=== PATIENT | female | born 1960 | race African-American/Black ===

== ENCOUNTER 2023-07-04 05:23 | Observation (INO) | payer BC ==
--- NOTE | 2023-06-29 10:25 | RAD REPORT ---
EXAM DESCRIPTION: RAD - Chest Pa And Lat (2 Views) - 06/29/2023 10:19 am CLINICAL HISTORY: PRE OP Chest pain. COMPARISON: No comparisons TECHNIQUE: PA and lateral views of the chest were obtained. FINDINGS: The lungs are hyperexpanded suggesting COPD. The heart is upper limit of normal in size. N o fracture or aggressive bony process. IMPRESSION: COPD without acute process identified. The USPSTF recommends annual screening for lung cancer with low-dose CT (LDCT) in adults aged 50 to 80 years who have a 20 pack-year smoking history and currently smoke or have quit within the past 15 years.
[2023-06-29 11:02] LABS: Urine Bilirubin NEGATIVE (Negative); Urine Blood Negative (Negative); Urine Clarity Clear (Clear); Urine Color Colorless (Yellow); Urine Glucose NEGATIVE (Negative); Urine Protein NEGATIVE (Negative); Urine Urobilinogen Normal (Normal)
[2023-06-29 11:03] LABS: Absolute Lymphocytes (CBC) 1.8 K/uL (0.7-4.9); Hematocrit 39.1 % (36.0-45.0); Lymphocytes % 21.2 % (15.3-44.8); MPV 8.8 fL (7.6-11.3); Platelets 254 thou/uL (152-406); RBC Red Blood Cell Count 4.39 M/uL (3.86-4.86)
[2023-06-29 11:09] LABS: Protime INR 1.03
[2023-06-29 11:30] LABS: Albumin 3.3 g/dL (3.4-5.0); Bilirubin Total 0.4 mg/dL (0.2-1.0); Protein, Total 7.6 g/dL (6.4-8.2)
[2023-07-04] MEDS ORDERED: CEFAZOLIN SODIUM 2 GM/VIAL ONE (05:52)
[2023-07-04] MEDS ORDERED: ACETAMINOPHEN 500 MG TAB ONE (05:53)
[2023-07-04] MEDS ORDERED: Ringers Lactate 1,000 ML IV ONE ×2 (05:53→08:59)
[2023-07-04] MEDS ORDERED: FENTANYL CITR 100 MCG/2 ML ONE (06:14)
[2023-07-04] MEDS ORDERED: LIDOCAINE 2% MPF 5 ML VIAL ONE ×2 (06:14→07:35)
[2023-07-04] MEDS ORDERED: HYDROMORPHONE HCL 1 MG/ML INJ ONE (06:15)
[2023-07-04] MEDS ORDERED: dexAMETHasone 4 MG/ML VIAL ONE (06:15)
[2023-07-04] MEDS ORDERED: MIDAZOLAM HCL 2 MG/2 ML INJ ONE (06:15)
[2023-07-04] MEDS ORDERED: EPINEPHRINE/PF 1 MG/ML AMP ONE (06:15)
[2023-07-04] MEDS ORDERED: BUPIVACAINE 0.25% PF 30 ML VIAL ONE (06:16)
[2023-07-04] MEDS ORDERED: dexAMETHasone 10 MG/ML VIAL ONE (06:29)
[2023-07-04] MEDS ORDERED: TRANEXAMIC ACID 1,000 MG/10 ML VIAL IV ONE (06:37)
[2023-07-04] MEDS ORDERED: propofoL 200 MG/20 ML VIAL IV ONE (07:23)
[2023-07-04] MEDS ORDERED: ONDANSETRON 4 MG/2 ML VIAL ONE (07:25)
[2023-07-04] MEDS ORDERED: KETOROLAC 30 MG/ML INJ ONE (07:26)
[2023-07-04] MEDS ORDERED: MAGNESIUM SULF IV ONE (07:30)
[2023-07-04] MEDS ORDERED: KETAMINE HCL IN 0.9 % NACL 50 MG/5 ML SYRINGE IV ONE (07:35)
[2023-07-04] MEDS ORDERED: DEXMEDETOMIDINE HCL 200 MCG/2 ML VIAL ONE (07:35)
[2023-07-04] MEDS ORDERED: NA CHLORIDE 0.9% 250 ML ONE (07:36)
[2023-07-04] MEDS ORDERED: ONDANSETRON 4 MG/2 ML VIAL IV PRN (09:39)
[2023-07-04] MEDS ORDERED: DOCUSATE NA 100 MG CAP PO PRN (09:39)
--- NOTE | 2023-07-04 09:47 | P.BOP ---
Preoperative diagnosis: left knee arthritis Postoperative diagnosis: same Primary procedure: left ttoal knee arthoplasty Estimated blood loss: 100 ccs Anesthesia: General Complications: None Transferred to: Recovery Room Condition: Good
--- OUTSIDE RECORDS SUMMARY | 2023-07-04 10:23 | XMS REPORT | Continuity of Care Document ---
:1960 Author Organization [facility] t Address [address] [facility] [address] [place] [address] Care Team Providers Name Role Phone Radhika Bond Primary Care Physician Justyn Herzog I Attending Clinician Unavailable Roverto VILLALOBOS, Salvador Paz Attending Clinician [phone] Abbe Cornell MA Attending Clinician Unavailable CAROLYNE THOMPSON Attending Clinician Unavailable Checo Interiano APRN Attending Clinician DEBBIE DARBY Attending Clinician Unavailable DEBBIE DARBY Attending Clinician [phone] JEANNE CHOI Attending Clinician Unavailable JEANNE CHOI Attending Clinician [phone] PARK THOMPSON Attending Clinician Unavailable Payers Payer Name Policy Type Policy Number Effective Date Expiration Date Andrea de oliveira [facility] [id number] 2018 [facility] 00:00:00 Problems Condition Condition Condition Status Onset Resolution Last Treating Co mments Source Name Details Category Date Date Treatment Clinician Date Chronic Chronic Disease Active [facility] pain of pain of 08-16 Health both knees both knees 00:00: 00 Primary Primary Disease Active [facility] osteoarthr osteoarthr 08-16 He alth itis of itis of 00:00: both knees both knees 00 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 3- st disease disease 00:00: Hospita that is that is 00 l not asthma not asthma Allergic Allergic Disease Active [facility] sinusitis sinusitis 02-12 00:00: Hospita 00 l Allergies, Adverse Reactions, Alerts Allergy Allergy Status Severity Reaction(s) Onset Inactive Treating Comm ents Source Name Type Date Date Clinician Codeine Propensi Active Unknown Method i ty to Reaction 02-12 st adverse 00:00: Hospita reaction 00 l s to drug Sulfa Propensi Active Unknown Methodi (Sulfona ty to Reaction 02-12 st mide adverse 00:00: Hospita Antibiot reaction 00 l ics) s to drug Codeine Allergy Active Unknown [facility] to 02-12 Health substanc 00:00: e 00 Family History Family Member Diagnosis Comments Start Date Stop Date Source Natural father Hypertension [facility] Natural father Diabetes [facility] Maternal grandfather Stroke Meth [facility] Maternal grandfather Throat cancer [facility] Natural mother Hypertension [facility] Social History Social Habit Start Date Stop Date Quantity Comments Source Health-related 2020-03-10 [facility] 00:00:00 Gender identity [facility] Sexual orientation [facility] Alcohol intake 2023-06-02 2023-06-02 Lifetime [facility] 00:00:00 00:00:00 non-drinker (finding) History of Social 2023-06-02 2023-06-02 [facility] function 00:00:00 00:00:00 Exposure to 2022-08-20 2022-08-30 Not sure [facility] SARS-CoV-2 (event) 00:00:00 16:20:00 Tobacco use and 2020-02-13 2020-02-13 Smokeless [facility] exposure 00:00:00 00:00:00 tobacco non-user Sex Ass[birth year] [facility] 00:00:00 00:00:00 Smoking Status Start Date Stop Date Source Unknown [facility] Never [facility] Medications Ordered Filled Start Stop Current Ordering Indication Dosage Frequency Signature Comments Components Source Medication Medication Date Date Medication? Clinician (SIG) Name Name mirabegron Yes 50mg QD Take 1 Metho di (MYRBETIQ) -09 tablet (50 st 50 mg 00:00: mg total) Hospita tablet 00 by mouth l extended daily. release 24 hr Sodium 2021-11- No [id number] 20mg UT Hyaluronate 0-08-30 Health solution 21:50: 21:50 prefilled 21 :00 syringe 20 mg Sodium 2021-11 No [id number] 20mg UT Hyaluronate 0-08-30 Health solution 21:50: 21:50 prefilled 21 :00 syringe 20 mg lidocaine 2021-11- No [id number] 1mL U T (Xylocaine) 0-08-30 Health 1 % 21:50: 21:50 injection 1 21 :00 mL lidocaine 2021-11 No [id number] 1mL U T (Xylocaine) 008-30 Health 1 % 21:50: 21:50 injection 1 21 :00 mL lidocaine 2021-11 No [id number] 1mL 1 mL, UT (Xylocaine) 0-08-30 Injection, H ealth 1 % 21:50: 21:50 Once PRN injection 1 21 :00 Procedure, mL Starting on Mon08/30/22 at 1650, For 1 dose lidocaine 2021-11 No [id number] 1mL 1 mL, UT (Xylocaine) 0-08-30 Injection, H ealth 1 % 21:50: 21:50 Once PRN injection 1 21 :00 Procedure, mL Starting on Mon08/30/22 at 1650, For 1 dose Sodium 2021-11 No [id number] 20mg 20 mg, UT Hyaluronate 008-30 Intra-jake H ealth solution 21:50: 21:50 cular, prefilled 21 :00 Once PRN syringe 20 Procedure, mg Starting on Mon08/30/22 at 1650, For 1 dose Sodium 2021-11 No [id number] 20mg 20 mg, UT Hyaluronate 0-09 29- Intra-jake H ealth solution 21:50: 21:50 cular, prefilled 21 :00 Once PRN syringe 20 Procedure, mg Starting on Mon08/30/22 at 1650, For 1 dose Sodium 2021-11- No [id number] 20mg UT Hyaluronate 0-08-23 Health solution 22:32: 22:32 prefilled 12 :00 syringe 20 mg Sodium 2021-11 No [id number] 20mg UT Hyaluronate 0-04 10-04 Health solution 22:32: 22:32 prefilled 12 :00 syringe 20 mg bupivacaine 2021-11 No [id number] 1mL UT (Marcaine) 0-04 10- Health 0.5 % 22:32: 22:32 injection 1 12 :00 mL bupivacaine 2021-11 No [id number] 1mL UT (Marcaine) 0-04 10 Health 0.5 % 22:32: 22:32 injection 1 12 :00 mL bupivacaine 2021-11 No [id number] 1mL 1 mL, UT (Marcaine) 0-04 10-04 Injection, He alth 0.5 % 22:32: 22:32 Once PRN injection 1 12 :00 Procedure, mL Starting on 08/23/22 at 1732, For 1 dose bupivacaine 2021-11 No [id number] 1mL 1 mL, UT (Marcaine) 0-04 08-23 Injection, He alth 0.5 % 22:32: 22:32 Once PRN injection 1 12 :00 Procedure, mL Starting on Mon08/23/22 at 1732, For 1 dose Sodium 2021-11 No [id number] 20mg 20 mg, UT Hyaluronate 0-04 10-04 Intra-jake H ealth solution 22:32: 22:32 cular, prefilled 12 :00 Once PRN syringe 20 Procedure, mg Starting on Mon08/23/22 at 1732, For 1 dose Sodium 2021-11 No [id number] 20mg 20 mg, UT Hyaluronate 0-04 10-04 Intra-jake H ealth solution 22:32: 22:32 cular, prefilled 12 :00 Once PRN syringe 20 Procedure, mg Starting on Mon08/23/22 at 1732, For 1 dose meloxicam No [id number] 15mg Take 1 UT (Mobic) 15 08-17-29 tablet (15 He alth MG tablet 00:00: 04:59 mg total) 00 :00 by mouth 1 (one) time each day if needed for mild pain. meloxicam No [id number] 15mg Take 1 UT (Mobic) 15 08-17 10-29 tablet (15 He alth MG tablet 00:00: 04:59 mg total) 00 :00 by mouth 1 (one) time each day if needed for mild pain. meloxicam No [id number] 15mg Take 1 UT (Mobic) 15 08-17 10-29 tablet (15 He alth MG tablet 00:00: 04:59 mg total) 00 :00 by mouth 1 (one) time each day if needed for mild pain. sodium 2021- No 8181 20mg UT hyaluronate 08-16 09 Health (viscosup) 15:00: 15:07 (Hyalgan) 00 :27 injection 20 mg lidocaine 2021- No [id number] 1mL UT (Xylocaine) 03-31 Health 1 % 21:04: 21:04 injection 1 22 :00 mL triamcinolo 2021- No [id number] 80mg UT ne 03-31 Health acetonide 21:04: 21:04 (Kenalog-40 22 :00 ) injection 80 mg lidocaine 2021- No [id number] 1mL UT (Xylocaine) 03-31 410 Health 1 % 21:04: 21:04 injection 1 22 :00 mL triamcinolo 2021- No [id number] 80mg UT ne 03-31 410 Health acetonide 21:04: 21:04 (Kenalog-40 22 :00 ) injection 80 mg triamcinolo 2021- No [id number] 80mg 80 mg, UT ne 03-31 410 Intra-jake Health acetonide 21:04: 21:04 cular, (Kenalog-40 22 :00 Once PRN ) injection Procedure, 80 mg Starting on Mon03/31/22 at 1604, For 1 dose lidocaine 2021- No [id number] 1mL 1 mL, UT (Xylocaine) 03-31 410 Injection, H ealth 1 % 21:04: 21:04 Once PRN injection 1 22 :00 Procedure, mL Starting on Mon03/31/22 at 1604, For 1 dose triamcinolo 2021- No [id number] 80mg 80 mg, UT ne 03-31 410 Intra-jake Health acetonide 21:04: 21:04 cular, (Kenalog-40 22 :00 Once PRN ) injection Procedure, 80 mg Starting on Shandra 03/31/22 at 1604, For 1 dose lidocaine 2021- No [id number] 1mL 1 mL, UT (Xylocaine) 03-31 Injection, H ealth 1 % 21:04: 21:04 Once PRN injection 1 22 :00 Procedure, mL Starting on Shandra 03/31/22 at 1604, For 1 dose Procedures Procedure Date / Time Performing Clinician Source Performed POC URINALYSIS DIPSTICK 2023-05-09 21:36:00 Salvador Woods [facility] [id number] 2023-05-09 21:35:45 Salvador Woods [facility] ARTHROCENTESIS ASPIR&/INJ 2022-08-30 [facility] ARTHROCENTESIS ASPIR&/INJ 2022-08-23 22:32:12 [facility] JT/BURSA W/O BILATERAL ARTHROCENTESIS ASPIR&/INJ 2022-03-31 21:04:22 [facility] JT/BURSA W/O BILATERAL Infectious agent 2020-10-26 00:00:00 [facility] detection by nucleic acid (DNA or Infectious agent 2020-10-19 00:00:00 [facility] by nucleic acid (DNA or Infectious agent 2020-10-13 00:00:00 [facility] detection by nucleic acid (DNA or Infectious agent 2020-03-04 00:00:00 [facility] detection by nucleic acid Plan of Care Planned Activity Planned Date Details Comments Source Future Scheduled 2023-06-29 Screening for [facility] Test 05:56:13 malignant neoplasm of colon (procedure) [code = 874231007] Future Scheduled 2023-06-29 Screening for [facility] Test 05:56:13 malignant neoplasm of colon (procedure) [code = 644514220] Future Scheduled 2023-06-29 Screening for [facility] Test 05:56:13 malignant neoplasm of colon (procedure) [code = 801516403] Future Scheduled 2023-06-29 [facility] Test 05:56:13 (#1) [code = COVID-19 VACCINE (#1)] Future Scheduled 2023-06-29 Hepatitis C [facility] Test 05:56:13 screening (procedure) [code = 201348011] Future Scheduled 2023-06-29 Screening for [facility] Test 05:56:13 malignant neoplasm of cervix (procedure) [code = 163031507] Future Scheduled 2023-06-29 BREAST CANCER [facility] Test 05:56:13 SCREENING [code = BREAST CANCER SCREENING] Future Scheduled 2023-06-29 SH[facility]LES [facility]ACCINES [facility] Test 05:56:13 (1 of 2) [code = SHINGLES VACCINES (1 of 2)] Future Scheduled 2023-06-29 INFLUENZA VACCINE [facility] Test 05:56:13 [code = INFLUENZA VACCINE] Future Scheduled 2023-06-29 Screening for [facility] Test 05:56:13 malignant neoplasm of colon (procedure) [code = 572883697] Future Scheduled 2023-06-29 Screening for [facility] Test 05:56:13 malignant neoplasm of colon (procedure) [code = 228955725] Encounters Start End Encounter Admission Attending Care Care Encounter Source Date/Time Date/Time Type Type Clinicians Facility Department ID 2023-02-03 Outpatient [facility] [id number] [place] 08:44:54 [id number] Health 2023-06-28 2023-06-28 Telephone Mino 1.2.840.1 [id number] [facility] 00:00:00 00:00:00 Justyn [address]errero [address] 3.430.2.7 Hospit a .3.306365 l .8 2023-06-02 2023-06-02 Telephone Roverto 1.2.840.1 [id number] [facility] 11:15:00 12:20:08 Consult Salvador [address]25.1.[address] [facility] 3.430.2.7 Hosp blossom .3.155648 l .8 2023-06-02 2023-06-02 Telephone Kraig, 1.2.840.1 [id number] [facility] 00:00:00 00:00:[address] 3.430.2.7 Hospit a .3.372320 l .8 2023-06-02 2023-06-02 Outpatient ROVERTO [facility] [id number] [place] 00:00:00 00:00:00 [place] [address] 2023-05-31 2023-05-31 Telephone Kraig, 1.2.840.1 [id number] [facility] 00:00:00 00:00:[address] 3.430.2.7 Hospit a .3.153977 l .8 2023-05-09 2023-05-09 Office Roverto, 1.2.840.1 [id number] [facility] 15:00:00 16:09:09 Visit Salvador [address]8071.1.[address] [facility] 3.430.2.7 Hosp blossom .3.017965 l .8 2023-05-09 2023-05-09 Outpatient ROVERTO [facility] [id number] [place] 00:00:00 00:00:00 SALV[place] [address] 2022-10-05 2022-10-05 Outpatient DONNA, [facility] [id number] [place] 16:30:00 17:06:43 [facility] 2022-08-30 2022-08-30 Procedure Laisha, [facility] 1.2.840.114 [id number] [place] 16:30:00 16:34:50 Visit Checo SUGAR 350.1.13.58 He alth [place]AND 9.2.7.2.686 [id number] 1 2022-08-23 2022-08-23 Procedure Laisha, [facility] 1.2.840.114 [id number] [place] 16:30:00 17:09:59 Visit Checo SUGAR 350.1.13.58 He alth LAND 9.2.7.2.686 [id number] 1 2022-08-16 2022-08-16 Office MAICO Thompson ORTHO [id number] [id number] [place] 09:15:00 10:07:51 Visit Carolyne SUGAR 350.1.13.58 [facility] alth [place] 9.2.7.2.686 [id number] 1 2022-03-31 2022-03-31 Office MAICO Thompson ORTHO 1.2.347.738 [id number] [place] 14:30:00 15:34:45 Visit Carolyne SUGAR 350.1.13.58 He alth LAND 9.2.7.2.686 [id number] 1 2020-10-29 2020-10-29 Outpatient DARBY, [facility] [id number] [facility] 15:00:00 15:00:00 DEBBIE [facility] 2020-10-29 2020-10-29 Outpatient DARBY, [facility] [id number] [facility] 15:00:00 15:00:00 DEBBIE Mendez [id number] de3 [id number] 2020-10-29 2020-10-29 Outpatient DARBY, [facility] [id number] [facility] 00:00:00 00:00:00 DEBBIE [facility] 2020-10-26 2020-10-26 Outpatient DARBY, [facility] [id number] [facility] 16:15:00 16:15:00 DEBBIE [facility] 2020-10-26 2020-10-26 Outpatient DARBY, [facility] [id number] [facility] 16:15:00 16:15:00 DEBBIE Mendez [id number] de3 [id number] 2020-10-19 2020-10-19 Outpatient DARBY, [facility] [id number] [facility] 13:15:00 13:15:00 DEBBIE [facility] 2020-10-19 2020-10-19 Outpatient DARBY, [facility] [id number] [facility] 13:15:00 13:15:00 DEBBIE Mendez [id number] [facility] [id number] [id number] 2020-10-13 2020-10-13 Outpatient WILNER, [facility] [id number] Access 14:00:00 14:00:00 DEBBIE [facility] 2020-10-13 2020-10-13 Outpatient WILNER, [facility] [id number] Access 14:00:00 14:00:00 DEBBIE Mendez [id number] [facility] [id number] [id number] 2020-10-13 2020-10-13 Outpatient WILNER, [facility] [id number] Access 00:00:00 00:00:00 DEBBIE [facility] 2020-10-13 2020-10-13 Outpatient WILNER [facility] [id number] Access 00:00:00 00:00:00 DEBBIE Mendez [id number] [facility] [id number] de3 [id number] 2020-03-10 2020-03-10 Outpatient JIMBO, [facility] [id number] Access 11:03:00 11:03:00 JEANNE [facility] 2020-03-10 2020-03-10 Outpatient JIMBO, [facility] [id number] Access 11:03:00 11:03:00 JEANNE [id number] [facility] [id number] 2020-03-04 2020-03-04 Outpatient [facility] [id number] Access 16:00:00 16:00:00 [id number] [facility] [id number] 2020-03-04 Outpatient [facility] [id number] [address] [place] 00:00:00 00:00:[address] 2020-03-04 2020-03-04 Outpatient WILNER, [facility] [id number] Access 00:00:00 00:00:00 DEBBIE [facility] 2020-03-04 2020-03-04 Outpatient THOMPSON, [facility] [id number] [address] [place] 00:00:00 00:00:00 [place] [address] 2020-03-04 2020-03-04 Outpatient WILNER, [facility] [id number] [facility] 00:00:00 00:00:00 DEBBIE Mendez [id number] [facility] [id number] de3 [id number] 2020-03-04 2020-03-04 Outpatient THOMPSON, [facility] [id number] [address] [place] 00:00:00 00:00:00 PARK [address] 2020-02-13 2020-02-13 Outpatient THOMPSON, [facility] [id number] [address] [place] 00:00:00 00:00:00 P[place] [address] Results Test Description Test Time Test Comments Results Result Comments Source POC urinalysis dipstick 2023-05-09 21:36:00 Test Item Value Reference Range Interpretation Comme nts Color urine, POC (test code = Yellow 1434588) Clarity urine, POC (test code = Clear 1847947) Glucose urine, POC (test code = Negative Negative 8564983) Bilirubin urine, POC (test code = Negative Negative 8269810) Ketones urine, POC (test code = Trace Negative A 2514-8) Specific gravity urine, POC (test 1.025 1.005-1.030 code = 5811-5) Blood urine, POC (test code = Negative Negative 3330715) pH urine, POC (test code = 5.5 See_Comment [Automated message] The 5803-2) system which ge nerated this result transmit zoya reference range: 5.0, 5.5 , 6.0, 6.5, 7.0, 7.5, 8.0, 8.5. The reference range was not used to interpret th is result as normal/abnormal . Protein urine, POC (test code = Trace Negative A 35090-4) Urobilinogen urine, POC (test <2.0 See_Comment [Automated message] The code = 82782-7) system which generated this result transmit zoya reference range: <=2.0. T he reference range was not u sed to interpret this result as normal/abnormal . Nitrite urine, POC (test code = Negative Negative 5802-4) Leukocyte esterase urine, POC Small Negative A (test code = 4477792) Lab Interpretation (test code = Abnormal 84770-0) [facility] BLADDER SCAN/[id number] 21:35:45 Test Item Value Reference Range Interpretation Comments Volume (test code = 0733117) 3ml [facility] Description: SARS-CoV-2 (COVID-19) RNA [Presence] in Unspecified specimen by MAGALIE with probe [id number] 08:42:00 Test Item Value Reference Range Interpretation Comments SARS-CoV-2 Not Detected Not Detected Testing was per formed using the , MAGALIE Aptima SARS-CoV -2 assay.This (test code nucleic acid am plification test = 70422-9) was developed a nd its performancechar acteristics determined by [employer]. [facility] acidamplificati on tests include PCR and TMA. Th is test has not been FDAcleared or approved. This test has b een authorized by FDA under anEme rgency Use Authorization ( EUA). This test is only authori zed forthe duration of manuela e the declaration that circumstan joe existjustifying the authorization o f the emergency use of in vitro diagnostic tests for detection o f SARS-CoV-2 virus and/or di agnosisof COVID-19 infect ion under section 564(b)(1) of th e Act, 21 U.S.C.360bbb-3( b) (1), unless the authorizati on is terminated or revokedsoone r.When diagnostic testing is nega tive, the possibility of a falsenegative result should b e considered in the context of a patient'srecent exposures and t he presence of clinical signs and symptomsconsist ent with COVID-19. An in dividual without symptoms of COV ID-19and who is not shedding SA RS-CoV-2 virus would expect to have anegative (not detected) result in this assay.
<br/ >Performed by:
[facility] CORREA)

[facility] Description: SARS-CoV-2 (COVID-19) RNA [Presence] in Unspecified specimen by MAGALIE with probe [id number] 08:42:00 Test Item Value Reference Range Interpretation Comments SARS-CoV-2 Not Detected Not Detected Testing was per formed using the , MAGALIE Aptima SARS-CoV -2 assay.This (test code nucleic acid am plification test = 00782-2) was developed a nd its performancechar acteristics determined by [employer]. N ucleic acidamplificati on tests include PCR and TMA. Th is test has not been FDAcleared or approved. This test has b een authorized by FDA under anEme rgency Use Authorization ( EUA). This test is only authori zed forthe duration of manuela e the declaration that circumstan joe existjustifying the authorization o f the emergency use of in vitro diagnostic tests for detection o f SARS-CoV-2 virus and/or di agnosisof COVID-19 infect ion under section 564(b)(1) of th e Act, 21 U.S.C.360bbb-3( b) (1), unless the authorizati on is terminated or revokedsoone r.When diagnostic testing is nega tive, the possibility of a falsenegative result should b e considered in the context of a patient'srecent exposures and t he presence of clinical signs and symptomsconsist ent with COVID-19. An in dividual without symptoms of COV ID-19and who is not shedding SA RS-CoV-2 virus would expect to have anegative (not detected) result in this assay.
<br/ >Performed by:
[facility] (NITHIN)

[facility] Description: SARS-CoV-2 (COVID-19) RNA [Presence] in Unspecified specimen by MAGALIE with probe [id number] 07:45:00 Test Item Value Reference Range Interpretation Comments SARS-CoV-2 Not Detected Not Detected Testing was per formed using the , MAGALIE Aptima SARS-CoV -2 assay.This (test code nucleic acid am plification test = 73202-0) was developed a nd its performancechar acteristics determined by [employer]. N ucleic acidamplificati on tests include PCR and TMA. is test has not been FDAcleared or approved. This test has b een authorized by FDA under anEme rgency Use Authorization ( EUA). This test is only authori zed duration of manuela e the declaration that circumstan joe existjustifying the authorization o f the emergency use of in vitro diagnostic tests for detection o f SARS-CoV-2 virus and/or di agnosisof COVID-19 infect ion under section 564(b)(1) of e Act, U.S.C.360bbb-3( b) (1), unless the authorizati on is terminated or revokedsoone r.When diagnostic testing is nega tive, the possibility of a falsenegative result should b e considered in the context of a patient'srecent exposures and t he presence of clinical signs and symptomsconsist ent with COVID-19. An in dividual without symptoms of COV ID-19and who is not shedding SA RS-CoV-2 virus would expect to have anegative (not detected) result in this assay.
<br/ >Performed by:
[facility] ()

[facility] Description: SARS-CoV-2 (COVID-19) RNA [Presence] in Unspecified specimen by MAGALIE with probe [id number] 07:45:00 Test Item Value Reference Range Interpretation Comments SARS-CoV-2 Not Detected Not Detected Testing was per formed using the , MAGALIE Aptima SARS-CoV -2 assay.This (test code nucleic acid am plification test = 98225-3) was developed a nd its performancechar acteristics determined by [employer]. [facility] acidamplificati on tests include PCR and TMA. is test has not been FDAcleared or approved. This test has b een authorized by FDA under anEme rgency Use Authorization ( EUA). This test is only authori zed duration of manuela e the declaration that circumstan joe existjustifying the authorization o f the emergency use of in vitro diagnostic tests for detection o f SARS-CoV-2 virus and/or di agnosisof COVID-19 infect ion under section 564(b)(1) of e Act, 21 U.S.C.360bbb-3( b) (1), unless the authorizati on is terminated or revokedsoone r.When diagnostic testing is nega tive, the possibility of a falsenegative result should b e considered in the context of a patient'srecent exposures and t he presence of clinical signs and symptomsconsist ent with COVID-19. An in dividual without symptoms of COV ID-19and who is not shedding SA RS-CoV-2 virus would expect to have anegative (not detected) result in this assay.
<br/ >Performed by:
[facility] (NITHIN)

[facility] Description: SARS-CoV-2 (COVID-19) RNA [Presence] in Unspecified specimen by MAGALIE with probe [id number] 07:45:00 Test Item Value Reference Range Interpretation Comments SARS-CoV-2 Not Detected Not Detected Testing was per formed using the , MAGALIE Aptima SARS-CoV -2 assay.This (test code nucleic acid am plification test = 31381-9) was developed a nd its performancechar acteristics determined by [employer]. [facility] acidamplificati on tests include PCR and TMA. is test has not been FDAcleared or approved. This test has b een authorized by FDA under anEme rgency Use Authorization ( EUA). This test is only authori zed forthe duration of manuela e the declaration that circumstan joe existjustifying the authorization o f the emergency use of in vitro diagnostic tests for detection o f SARS-CoV-2 virus and/or di agnosisof COVID-19 infect ion under section 564(b)(1) of e Act, 21 U.S.C.360bbb-3( b) (1), unless the authorizati on is terminated or revokedsoone r.When diagnostic testing is nega tive, the possibility of a falsenegative result should b e considered in the context of a patient'srecent exposures and t he presence of clinical signs and symptomsconsist ent with COVID-19. An in dividual without symptoms of COV ID-19and who is not shedding SA RS-CoV-2 virus would expect to have anegative (not detected) result in this assay.
<br/ >Performed by:
Miracle Kellogg (NITHIN)

[facility] Description: SARS-CoV-2 (COVID-19) RNA [Presence] in Unspecified specimen by MAGALIE with probe [id number] 07:45:00 Test Item Value Reference Range Interpretation Comments SARS-CoV-2 Not Detected Not Detected Testing was per formed using the , MAGALIE Aptima SARS-CoV -2 assay.This (test code nucleic acid am plification test = 77079-2) was developed a nd its performancechar acteristics determined by [employer]. [facility] acidamplificati on tests include PCR and TMA. Th is test has not been FDAcleared or approved. This test has b een authorized by FDA under anEme rgency Use Authorization ( EUA). This test is only authori zed forthe duration of manuela e the declaration that circumstan joe existjustifying the authorization o f the emergency use of in vitro diagnostic tests for detection o f SARS-CoV-2 virus and/or di agnosisof COVID-19 infect ion under section 564(b)(1) of th e Act, 21 U.S.C.360bbb-3( b) (1), unless the authorizati on is terminated or revokedsoone r.When diagnostic testing is nega tive, the possibility of a falsenegative result should b e considered in the context of a patient'srecent exposures and t he presence of clinical signs and symptomsconsist ent with COVID-19. An in dividual without symptoms of COV ID-19and who is not shedding SA RS-CoV-2 virus would expect to have anegative (not detected) result in this assay.
<br/ >Performed by:
Miracle Kellogg (NITHIN)

[facility] Description: SARS-CoV-2 (COVID-19) RNA [Presence] in Unspecified specimen by MAGALIE with probe [id number] 05:31:00 Test Item Value Reference Range Interpretation Comments SARS-CoV-2 Not Detected Not Detected Testing was per formed using the , MAGALIE Aptima SARS-CoV -2 assay.This (test code nucleic acid am plification test = 72105-8) was developed a nd its performancechar acteristics determined by [employer]. N ucleic acidamplificati on tests include PCR and TMA. Th is test has not been FDAcleared or approved. This test has b een authorized by FDA under anEme rgency Use Authorization ( EUA). This test is only authori zed forth duration of manuela e the declaration that circumstan joe existjustifying the authorization o f the emergency use of in vitro diagnostic tests for detection o f SARS-CoV-2 virus and/or di agnosisof COVID-19 infect ion under section 564(b)(1) of e Act, 21 U.S.C.360bbb-3( b) (1), unless the authorizati on is terminated or revokedsoone r.When diagnostic testing is nega tive, the possibility of a falsenegative result should b e considered in the context of a patient'srecent exposures and t he presence of clinical signs and symptomsconsist ent with COVID-19. An in dividual without symptoms of COV ID-19and who is not shedding SA RS-CoV-2 virus would expect to have anegative (not detected) result in this assay.
<br/ >Performed by:
Miracle Kellogg ()

[facility] Description: SARS-CoV-2 (COVID-19) RNA [Presence] in Unspecified specimen by MAGALIE with probe [id number] 05:31:00 Test Item Value Reference Range Interpretation Comments SARS-CoV-2 Not Detected Not Detected Testing was per formed using the , MAGALIE Aptima SARS-CoV -2 assay.This (test code nucleic acid am plification test = 87155-4) was developed a nd its performancechar acteristics determined by [employer]. N ucleic acidamplificati on tests include PCR and TMA. Th is test has not been FDAcleared or approved. This test has b een authorized by FDA under anEme rgency Use Authorization ( EUA). This test is only authori zed forthe duration of manuela e the declaration that circumstan joe existjustifying the authorization o f the emergency use of in vitro diagnostic tests for detection o f SARS-CoV-2 virus and/or di agnosisof COVID-19 infect ion under section 564(b)(1) of e Act, 21 U.S.C.360bbb-3( b) (1), unless the authorizati on is terminated or revokedsoone r.When diagnostic testing is nega tive, the possibility of a falsenegative result should b e considered in the context of a patient'srecent exposures and t he presence of clinical signs and symptomsconsist ent with COVID-19. An in dividual without symptoms of COV ID-19and who is not shedding SA RS-CoV-2 virus would expect to have anegative (not detected) result in this assay.
<br/ >Performed by:
[facility] (NITHIN)

[facility] Description: SARS-CoV-2 (COVID-19) RNA [Presence] in Unspecified specimen by MAGALIE with probe [id number] 05:31:00 Test Item Value Reference Range Interpretation Comments SARS-CoV-2 Not Detected Not Detected Testing was per formed using the , MAGALIE Aptima SARS-CoV -2 assay.This (test code nucleic acid am plification test = 10947-4) was developed a nd its performancechar acteristics determined by [employer]. [facility] acidamplificati on tests include PCR and TMA. is test has not been FDAcleared or approved. This test has b een authorized by FDA under anEme rgency Use Authorization ( EUA). This test is only authori zed forthe duration of manuela e the declaration that circumstan joe existjustifying the authorization o f the emergency use of in vitro diagnostic tests for detection o f SARS-CoV-2 virus and/or di agnosisof COVID-19 infect ion under section 564(b)(1) of e Act, 21 U.S.C.360bbb-3( b) (1), unless the authorizati on is terminated or revokedsoone r.When diagnostic testing is nega tive, the possibility of a falsenegative result should b e considered in the context of a patient'srecent exposures and t he presence of clinical signs and symptomsconsist ent with COVID-19. An in dividual without symptoms of COV ID-19and who is not shedding SA RS-CoV-2 virus would expect to have anegative (not detected) result in this assay.
<br/ >Performed by:
Miracle Kellogg ()

[facility] Description: SARS-CoV-2 (COVID-19) RNA [Presence] in Unspecified specimen by MAGALIE with probe [id number] 05:31:00 Test Item Value Reference Range Interpretation Comments SARS-CoV-2 Not Detected Not Detected Testing was per formed using the , MAGALIE Aptima SARS-CoV -2 assay.This (test code nucleic acid am plification test = 94571-7) was developed a nd its performancechar acteristics determined by [employer]. [facility] acidamplificati on tests include PCR and TMA. Th is test has not been FDAcleared or approved. This test has b een authorized by FDA under anEme rgency Use Authorization ( EUA). This test is only authori zed forthe duration of manuela e the declaration that circumstan joe existjustifying the authorization o f the emergency use of in vitro diagnostic tests for detection o f SARS-CoV-2 virus and/or di agnosisof COVID-19 infect ion under section 564(b)(1) of th e Act, 21 U.S.C.360bbb-3( b) (1), unless the authorizati on is terminated or revokedsoone r.When diagnostic testing is nega tive, the possibility of a falsenegative result should b e considered in the context of a patient'srecent exposures and t he presence of clinical signs and symptomsconsist ent with COVID-19. An in dividual without symptoms of COV ID-19and who is not shedding SA RS-CoV-2 virus would expect to have anegative (not detected) result in this assay.
<br/ >Performed by:
Miracle Kellogg ()

[facility] Description: SARS-CoV-2, [id number] 17:05:00 Test Item Value Reference Range Interpretation Comments SARS-CoV-2, Not Detected Not Detected This test was d eveloped and MAGALIE (test code its performan ce = 68776-4) characteristics determinedby [employer]. T his test has not been FDA cl eared orapproved. Thi s test has been authorized by FDA under an Emerge ncy UseAuthorizatio n (EUA). This test has b [facility] withthe FDA's G uidance Document ([facility] Diagnostics [place] [facility] inLaboratories Certified to Perform High Co mplexity Testing under C LIAprior to Emergency Use A uthorization for Coronavirus Disease-2019dur ing the Public Health E mergency) issued on 2019.FDA indepe ndent review of this validat ion is pending. This t est isonly authorized for the duration of time the dec laration thatcircumstanc es exist justifying the authorization o f the emergency useof in vitro diagnostic test s for detection of SA RS-CoV-2 virus and/ordia gnosis of COVID-19 infect ion under section 564(b)( 1) of the Act, 21U.S.C. 360bbb-3(b)(1), unless the authorization i s terminated orrevoked sooner.

Performed by:
[facility] (CETWE)

[facility] Description: SARS-CoV-2, [id number] 17:05:00 Test Item Value Reference Range Interpretation Comments SARS-CoV-2, Not Detected Not Detected This test was d eveloped and MAGALIE (test code its performan ce = 83627-3) characteristics determinedby [employer]. T his test has not been FDA cl eared orapproved. Thi s test has been authorized by FDA under an Emerge ncy UseAuthorizatio n (EUA). This test has b een [facility] withthe FDA's G uidance Document (Polic y for Diagnostics [place] inLaboratories Certified to Perform High Co mplexity Testing under C LIAprior to Emergency Use A uthorization for Coronavirus Disease-2019dur ing the Public Health E mergency) issued on 2019.FDA indepe ndent review of this validat ion is pending. This t est isonly authorized for the duration of time the dec laration thatcircumstanc es exist justifying the authorization o f the emergency useof in vitro diagnostic test s for detection of SA RS-CoV-2 virus and/ordia gnosis of COVID-19 infect ion under section 564(b)( 1) of the Act, 21U.S.C. 360bbb-3(b)(1), unless the authorization i s terminated orrevoked sooner.

Performed by:
[facility] ([facility])

[facility] Description: SARS-CoV-2, [id number] 17:05:00 Test Item Value Reference Range Interpretation Comments SARS-CoV-2, Not Detected Not Detected This test was d eveloped and MAGALIE (test code its performan ce = 59659-2) characteristics determinedby [employer]. T his test has not been FDA cl eared orapproved. Thi s test has been authorized by FDA under an Emerge ncy UseAuthorizatio n (EUA). This test has b een validated in [place] withthe FDA's G uidance Document (Polic y for Diagnostics [place] [facility] inLaboratories Certified to Perform High Co mplexity Testing under C LIAprior to Emergency Use A uthorization for Coronavirus Disease-2019dur ing the Public Health E mergency) issued on 2019.FDA indepe ndent review of this validat ion is pending. This t est isonly authorized for the duration of time the dec laration thatcircumstanc es exist justifying the authorization o f the emergency useof in vitro diagnostic test s for detection of SA RS-CoV-2 virus and/ordia gnosis of COVID-19 infect ion under section 564(b)( 1) of the Act, 21U.S.C. 360bbb-3(b)(1), unless the authorization i s terminated orrevoked sooner.

Performed by:
[facility] ([facility])

[facility] Description: SARS-CoV-2, [id number] 17:05:00 Test Item Value Reference Range Interpretation Comments SARS-CoV-2, Not Detected Not Detected This test was d eveloped and MAGALIE (test code its performan ce = 30665-2) characteristics determinedby [employer]. T his test has not been FDA cl eared orapproved. Thi s test has been authorized by FDA under an Emerge ncy UseAuthorizatio n (EUA). This test has b een validated in ac [facility] withthe FDA's G uidance Document (Polic y for Diagnostics [place] inLaboratories Certified to Perform High Co mplexity Testing under C LIAprior to Emergency Use A uthorization for Coronavirus Disease-2019dur ing the Public Health E mergency) issued on 2019.FDA indepe ndent review of this validat ion is pending. This t est isonly authorized for the duration of time the dec laration thatcircumstanc es exist justifying the authorization o f the emergency useof in vitro diagnostic test s for detection of SA RS-CoV-2 virus and/ordia gnosis of COVID-19 infect ion under section 564(b)( 1) of the Act, 21U.S.C. 360bbb-3(b)(1), unless the authorization i s terminated orrevoked sooner.

Performed by:
[facility] ([facility])

[facility] Description: SARS-CoV-2, [id number] 17:05:00 Test Item Value Reference Range Interpretation Comments SARS-CoV-2, Not Detected Not Detected This test was d eveloped and MAGALIE (test code its performan ce = 57360-8) characteristics determinedby [employer]. T his test has not been FDA cl eared orapproved. Thi s test has been authorized by FDA under an Emerge ncy UseAuthorizatio n (EUA). This test has b een validated in [facility] withthe FDA's G uidance Document (Polic y for Diagnostics [place] inLaboratories Certified to Perform High Co mplexity Testing under C LIAprior to Emergency Use A uthorization for Coronavirus Disease-2018dur ing the Public Health E mergency) issued on 2019.FDA indepe ndent review of this validat ion is pending. This t est isonly authorized for the duration of time the dec laration thatcircumstanc es exist justifying the authorization o f the emergency useof in vitro diagnostic test s for detection of SA RS-CoV-2 virus and/ordia gnosis of COVID-19 infect ion under section 564(b)( 1) of the Act, 21U.S.C. 360bbb-3(b)(1), unless the authorization i s terminated orrevoked sooner.

Performed by:
[facility] ([facility])

[facility] Description: SARS-CoV-2, [id number] 17:05:00 Test Item Value Reference Range Interpretation Comments SARS-CoV-2, Not Detected Not Detected This test was d eveloped and MAGALIE (test code its performan ce = 87521-2) characteristics determinedby [employer]. T his test has not been FDA cl eared orapproved. Thi s test has been authorized by FDA under an [facility] UseAuthorizatio n (EUA). This test has b een validated in [facility] withthe FDA's G uidance Document (Polic y for Diagnostics [place] inLaboratories Certified to Perform High Co mplexity Testing under C LIAprior to Emergency Use A uthorization for Coronavirus Disease-2019dur ing the Public Health E mergency) issued on 2019.FDA indepe ndent review of this validat ion is pending. This t est isonly authorized for the duration of time the dec laration thatcircumstanc es exist justifying the authorization o f the emergency useof in vitro diagnostic test s for detection of SA RS-CoV-2 virus and/ordia gnosis of COVID-19 infect ion under section 564(b)( 1) of the Act, 21U.S.C. 360bbb-3(b)(1), unless the authorization i s terminated orrevoked sooner.

Performed by:
Miracle Grimm (KORIN)

[facility]
[2023-07-04 11:39] VITALS: BMI 43.2
[2023-07-04] MEDS ORDERED: MORPHINE 4 MG/ML SYR IV PRN (12:45)
[2023-07-04] MEDS ORDERED: TRAMADOL HCL 50 MG TAB PO PRN (13:16)
[2023-07-04] MEDS ORDERED: LABETALOL 20 MG/4ML SYRINGE IV PRN (13:17)
--- NOTE | 2023-07-04 13:22 | P.CNS ---
Date of Consult: 07/04/23 Reason for Consult: Medical management. Requesting Physician: Marcus Churchill Chief Complaint: Left knee osteoarthritis History of Present Illness: Patient is a 62-year-old female with a past medical history significant for osteoarthritis, overactive bladder, peripheral neuropathy, obesity who presents for a planned procedure with her orthopedic surgeon. Patient reported that she has been having bilateral knee pain for the past 1 and half years. Patient reported that she has attempted pain medication, steroid shot and conservative measures but has not had any improvement in pain. Patient rated pain in the left knee as 10/10 in severity and described pain as burning in quality. Patient presented to the hospital today and successfully had a left knee replacement. Patient currently resting in bed. Allergies codeine Allergy (Verified 07/04/23 08:03) Itching Sulfa (Sulfonamide Antibiotics) Allergy (Verified 07/04/23 08:03) rash, vomiting gabapentin Adverse Reaction (Verified 07/04/23 08:03) Nausea/Vomiting, diarrhea Home Medications: Diclofenac Sodium 50 mg PO TID 06/29/23 Duloxetine HCl 30 mg PO BID 06/29/23 Mirabegron [Myrbetriq] 50 mg PO DAILY 06/29/23 Pregabalin [Lyrica] 100 mg PO BID 06/29/23 Tramadol HCl [Ultram] 50 mg PO Q8HP PRN 06/29/23 - Past Medical/Surgical History Diabetic: No -: OA -: OAB -: Peripheral neuropathy -: Obesity -: LEFT BIG TOE PARTIAL AMPUTATION - Family History Brother Medical History: Hypertension, Cancer Notes: brother had kidney cancer Sister Medical History: Hypertension Mother Medical History: Hypertension - Social History Smoking Status: Never smoker Alcohol use: No CD- Drugs: No Caffeine use: Yes Place of Residence: Home Review of Systems General: Unremarkable Eyes: Unremarkable ENT: Unremarkable Respiratory: Unremarkable Cardiovascular: Unremarkable Gastrointestinal: Unremarkable Genitourinary: Unremarkable Musculoskeletal: Leg Pain, Other (Left knee pain) Integumentary: Other (Left knee incision) Neurological: Other Lymphatics: Unremarkable Physical Examination Temp Pulse Resp BP Pulse Ox 97.0 F 88 16 131/66 97 07/04/23 12:00 07/04/23 12:00 07/04/23 12:00 07/04/23 12:00 07/04/23 12:00 General: Alert, In no apparent distress, Oriented x3, Cooperative HEENT: Atraumatic, PERRLA, Mucous membr. moist/pink, EOMI, Sclerae nonicteric Neck: Supple, 2+ carotid pulse no bruit, No LAD, Without JVD or thyroid abnormality Respiratory: Clear to auscultation bilaterally, Normal air movement Cardiovascular: No edema, Regular rate/rhythm, Normal S1 S2 Capillary refill: <2 Seconds Gastrointestinal: Normal bowel sounds, Soft and benign, No tenderness Musculoskeletal: No clubbing, No tenderness Integumentary: No rashes, No breakdown, Other (Left knee incision) Neurological: Normal speech, Normal tone, Normal affect Lymphatics: No axilla or inguinal lymphadenopathy Conclusions/Impression: --Left knee osteoarthritis. Status post left knee replacement. Orthopedic surgeon on board. Patient on a CPM machine. PT eval and treat. Further management per orthopedic surgeon. --Osteoarthritis\Acute pain. We will manage pain with current pain medication regimen. --Peripheral neuropathy. Continue home medications. --Obesity. Likely secondary to sedentary lifestyle and excess calories intake. Patient counseled on weight reduction, diet and exercise therapy. --Overactive bladder. Continue home medication. --History of varicose veins. Continue supportive care. --DVT prophylaxis with SCDs. Continue chemical prophylaxis in a.m.
[2023-07-04] MEDS: HYDROCODONE/APAP 7.5/325 MG TAB PO PRN ×2 (13:28→21:39)
[2023-07-04 14:34] LABS: Magnesium 2.3 mg/dL (1.6-2.4); Phosphorus 3.1 mg/dL (2.5-4.9)
[2023-07-04] MEDS: CEFAZOLIN 1 GM in NA CHLORIDE 0.9% 50 ML IVPB SCH (16:26)
--- NOTE | 2023-07-04 17:06 | OP ---
Date of Procedure: 07/04/2023 Surgeon: Marcus Churchill MD Preoperative Diagnosis: Left knee arthritis. Postoperative Diagnosis: Left knee arthritis. Procedure: Left total knee arthroplasty using the [employer] Vangu[employer] system. Estimated Blood Loss: 100 cc. Complications: There were no complications. Indications For Operation: Ms. Cook is a 62-year-old female, who unfortunately has been suffering from debilitating left knee pain. This continues despite conservative management including pain man agement. She does have some what appeared to be neurologic symptoms related to her left knee as well as significant arthritic changes. Risks, benefits, and alternatives of different methods of treatin g this have been discussed further again. She was told that the total knee may not assist her with h er neuropathic or neurologic changes that she has been treated by Pain Management; however, definitel y has arthritic changes, which has not been responsive to conservative care. Risks, benefits, and al ternatives to this procedure are again discussed prior to the procedure and the patient agrees to pro ceed. Description Of Procedure: The patient was taken to the operating room, placed in supine position. A block had previously been obtained in the holding area. She then easily undergoes general anesthesi a and then a well-padded tourniquet was placed on the superior left thigh. Left lower extremity was then prepped and draped in the usual sterile fashion for the procedure. Following this, the leg was then elevated, gently exsanguinated, and the knee was bent. Tourniquet was raised. A standard anter ior incision was taken down carefully through the skin and soft tissues. Meticulous hemostasis being maintained using Bovie electrocautery. This leads down to the extensor mechanism. Appropriate plan e was obtained and a standard medial parapatellar arthrotomy was then performed with liberation appro ximately 60 cc of rather normal-appearing synovial fluid. This was followed by resection of the ante rior cruciate ligament as well as the medial and lateral menisci. There was found to be quite a bit of arthritic changes in the region of the patella with a significant osteophyte formation as well as quite a bit of arthritic change of the medial compartment. Following this, the intramedullary alignm ent guide was placed without difficulty and the femur was then cut. Care was taken not to over size or overstuff the femur and it was cut to a size 62.5. Attention was then turned to the tibia and was cut in standard fashion. After this, it was then sized and trialed with a size 10 poly. It was fou nd to be somewhat tight in both flexion and extension. Therefore, additional tibia was resected, whi ch does allow for comfortable placement of a size 10 trial. The knee appears to be well aligned and has full flexion and extension. The patella appears to glide well. Attention was then turned to the patella. Osteophytes were removed. It was then calipered and cut, and a trial patella was then mindy светлана. It was then brought through full range of motion and was found to glide excellently. After thi s, the trial components were then removed. A bone plug was placed as well as the tibia being punched . This was performed after the box was cut. After this, the surface was then cleaned and dried for preparation of cement and the final components with the exception of the tibial polyethylene were the n placed and allowed for the cement to dry with any unsupported cement being removed. After this, th is was brought through full range of motion and appeared to be stable to varus and valgus stress, ful l extension, and appeared to be balanced in flexion and extension. There may be a little tight in fl exion, but I think this may be more generated by the excessive weight of the thigh rather than any as ymmetric loading. The wound was copiously irrigated and the final polyethylene was placed and locked in place with a locking bar. It was again irrigated and the extensor mechanism was repaired using h eavy Ethibond sutures followed by irrigation and repair of the skin using Vicryl sutures followed by chad. The patient was then placed in a very well-padded sterile dressing, awakened, taken to the recovery room. There were no complications. SE/MODL Voice ID: [id number] Report ID: [id number]
[2023-07-04] MEDS: PREGABALIN 50 MG CAP PO SCH (21:39)
[2023-07-04] MEDS: DULOXETINE 30 MG CAP PO SCH (21:39)
[2023-07-05] MEDS: CEFAZOLIN 1 GM in NA CHLORIDE 0.9% 50 ML IVPB SCH ×2 (01:01→08:12)
[2023-07-05 04:37] LABS: Hematocrit 34.8 % (36.0-45.0); Lymphocytes % 6.4 % (15.3-44.8); MCV 87.9 fL (80-100); MPV 8.6 fL (7.6-11.3); Platelets 246 thou/uL (152-406); RBC Red Blood Cell Count 3.96 M/uL (3.86-4.86)
[2023-07-05 04:51] LABS: Potassium 4.5 mEq/L (3.5-5.1)
[2023-07-05 05:37] LABS: Blood Morphology Comment NOT SEEN (NOT SEEN); Platelet Estimate ADEQ
[2023-07-05] MEDS ORDERED: ENOXAPARIN 30 MG/0.3 ML SQ SCH (06:00)
--- NOTE | 2023-07-05 07:06 | P.PN ---
Date of Service: 07/05/23 Subjective: Feeling better today strength improving no side effects /allergy to pain medication pain meds helping no new / worsening problems ambulated 100+Ft with PT ROS: 10 point ROS as noted above, otherwise negative Physical Exam: GEN: Alert, oriented, NAD HEENT: Normal conjunctiva, sclera anicteric CV: Regular rate and rhythm, no edema Pulm: Nonlabored respirations on room air ABD: Soft, nontender, nondistended Integumentary: Left knee incision, Dressing in place c/d/i Neuro: Normal speech, normal affect vitals reviewed Problem List: Left knee osteoarthritis now s/p total left knee arthoplasty 07/04 Peripheral neuropathy Obesity Overactive bladder h/o varicose veins Left knee osteoarthritis now s/p total left knee arthoplasty 07/04 Orthopedic surgeon - Dr. Churchill following s/p total left knee arthoplasty 07/04 Continue PT PRN pain medication anticipate dc home today leukocytosis felt to be inflammatory / secondary to recent surgery; no evidence of infection on exam or ROS ok to discharge once cleared by PT/Ortho Peripheral neuropathy Obesity Overactive bladder Continue home medication. History of varicose veins. Continue supportive care. VTE: Lovenox Code: Full Dispo: Home, anticipate today
[2023-07-05] MEDS: DULOXETINE 30 MG CAP PO SCH (08:11)
[2023-07-05] MEDS: PREGABALIN 50 MG CAP PO SCH (08:11)
[2023-07-05] MEDS: HYDROCODONE/APAP 7.5/325 MG TAB PO PRN ×2 (08:16→15:32)
[2023-07-05] MEDS ORDERED: HOME MED 1 EA UNK (Mirabegron [Myrbetriq] 50 MG Tab.Er.24h) PO SCH (09:00)
[2023-07-05 09:28] VITALS: O2SAT 98
[2023-07-05 16:42] VITALS: BP 135/71; TEMP 98.3
== END 2023-07-05 18:34 | disposition home health service (06) ==
LOC: OR 05:23 → 2ND 09:39
PROVIDERS: ADMIT Orthopaedic Surgery; ATTEND Orthopaedic Surgery
PROC: 0SRD069 Replacement of Left Knee Joint with Oxidized Zirconium on Polyethylene Synthetic Substitute, Cemented, Open Approach (ICD-10-PCS; principal; 2023-07-04 07:00)
DX: M17.12 Unilateral primary osteoarthritis, left knee (principal); N32.81 Overactive bladder; G62.9 Polyneuropathy, unspecified; E66.9 Obesity, unspecified; Z88.6 Allergy status to analgesic agent; Z88.2 Allergy status to sulfonamides
CPT/HCPCS: 85025 ×2; 80048; 36415 ×3; 86900; 83735; 86850; 84100; 85610; 80061; 86901; 88304; 88311; 85730; 81003; 80053; 71046; 97110 ×3; 97116 ×4; 97139; 97161; 97530 ×2; 94010; 27447; J3475; J2704; J1100 ×2; J0171; J2001 ×2; J1650; J2250; J3010; J1170; J2405; J7120 ×2; J7050; J0690 ×3

== ENCOUNTER 2023-09-05 06:50 | Observation (INO) | payer BC ==
[2023-09-05 07:12] LABS: Absolute Lymphocytes (CBC) 1.3 K/uL (0.7-4.9); Hematocrit 39.5 % (36.0-45.0); Lymphocytes % 18.3 % (15.3-44.8); MCV 87.1 fL (80-100); MPV 7.5 fL (7.6-11.3); Platelets 272 thou/uL (152-406); RBC Red Blood Cell Count 4.53 M/uL (3.86-4.86)
[2023-09-05 07:25] LABS: Potassium 4.1 mEq/L (3.5-5.1)
[2023-09-05] MEDS: CEFAZOLIN SODIUM 1 GM/VIAL ONE ×2 (07:33→10:10)
[2023-09-05] MEDS ORDERED: Ringers Lactate 1,000 ML IV ONE (07:33)
[2023-09-05] MEDS ORDERED: propofoL 200 MG/20 ML VIAL IV ONE (08:34)
[2023-09-05] MEDS ORDERED: dexAMETHasone 10 MG/ML VIAL ONE (08:34)
[2023-09-05] MEDS ORDERED: MIDAZOLAM HCL 2 MG/2 ML INJ ONE (08:34)
[2023-09-05] MEDS ORDERED: FENTANYL CITR 100 MCG/2 ML ONE (08:34)
[2023-09-05] MEDS ORDERED: LIDOCAINE 2% MPF 5 ML VIAL ONE (08:35)
[2023-09-05] MEDS ORDERED: ONDANSETRON 4 MG/2 ML VIAL ONE (08:35)
[2023-09-05] MEDS ORDERED: KETOROLAC 30 MG/ML INJ ONE (08:35)
[2023-09-05] MEDS ORDERED: ROCURONIUM 50 MG/5 ML VIAL IV ONE (11:44)
--- NOTE | 2023-09-05 11:44 | P.BOP ---
Preoperative diagnosis: left knee stiffness after TKA Postoperative diagnosis: Same Primary procedure: ABRAHAM under anesthesia Estimated blood loss: 0 Anesthesia: General Transferred to: Recovery Room Condition: Good
[2023-09-05] MEDS ORDERED: DOCUSATE NA 100 MG CAP PO PRN (11:45)
[2023-09-05] MEDS ORDERED: HYDROCODONE/APAP 7.5/325 MG TAB PO PRN (11:45)
[2023-09-05] MEDS ORDERED: SUGAMMADEX SODIUM 200 MG/2 ML VIAL IV ONE (11:55)
[2023-09-05] MEDS: MORPHINE 4 MG/ML SYR ONE ×4 (12:12→13:18)
--- OUTSIDE RECORDS SUMMARY | 2023-09-05 13:42 | XMS REPORT | Continuity of Care Document ---
:1960 Author Organization [facility] t Address [address] [facility] [address] [place] [address] Care Team Providers Name Role Phone Tete Arana Primary Care Physician Justyn Herzog I Attending Clinician Unavailable Chuck VILLALOBOS, Diana Paz Attending Clinician [phone] Abbe Cornell MA Attending Clinician Unavailable CAROLYNE THOMPSON Attending Clinician Unavailable Checo Interiano APRN Attending Clinician DEBBIE DARBY Attending Clinician Unavailable DEBBIE DARBY Attending Clinician [phone] JEANNE CHOI Attending Clinician Unavailable JEANNE CHOI Attending Clinician [phone] PARK THOMPSON Attending Clinician Unavailable Payers Payer Name Policy Type Policy Number Effective Date Expiration Date Andrea de oliveira [facility] [id number] 2018 [facility] 00:00:00 Problems Condition Condition Condition Status [...] Date Stop Date Source Natural father Hypertension [facility] Natural father Diabetes [facility] Maternal grandfather Stroke Meth [facility] Maternal grandfather Throat cancer [facility] Natural mother Hypertension [facility] Social History Social Habit Start Date Stop Date Quantity Comments Source Health-related 2020-03-10 [facility] 00:00:00 Sexual orientation Method [facility] Gender identity [facility] Alcohol intake 2023-06-02 2023-06-02 Lifetime [facility] 00:00:00 00:00:00 non-drinker (finding) History of Social 2023-06-02 2023-06-02 [facility] function 00:00:00 00:00:00 Exposure to 2022-08-20 2022-08-30 Not sure [facility] SARS-CoV-2 (event) 00:00:00 16:20:00 Tobacco use and 2020-02-13 2020-02-13 Smokeless [facility] exposure 00:00:00 00:00:00 tobacco non-user Sex Ass[birth year] [facility] 00:00:00 00:00:00 Smoking Status Start Date Stop Date Source Unknown if [facility] Never [facility] tobacco [facility] Medications Ordered Filled Start Stop Current Ordering Indication Dosage Frequency Signature Comments Components Source Medication Medication Date Date Medication? Clinician (SIG) Name Name mirabegron Yes 50mg QD Take 1 Metho di (MYRBETIQ) 8-09 tablet (50 st 50 mg 00:00: mg total) [facility]osp[facility] tablet 00 by mouth l extended daily. release 24 hr mirabegron 0 Yes 50mg QD Take 1 Metho di (MYRBETIQ) 8-09 tablet (50 st 50 mg 00:00: mg total) [facility]ospita tablet 00 by mouth l extended daily. release 24 hr Sodium 2021-11 No [id number] 20mg UT Hyaluronate 0-11 10-11 Health solution 21:50: 21:50 prefilled 21 :00 syringe 20 mg Sodium 2021-11 No [id number] 20mg UT Hyaluronate 0-11 10- Health solution 21:50: 21:50 prefilled 21 :00 syringe 20 mg lidocaine 2021-11 No [id number] 1mL U T (Xylocaine) 0- 10- Health 1 % 21:50: 21:50 injection 1 21 :00 mL lidocaine 2021-11 No [id number] 1mL U T (Xylocaine) 0- 10- Health 1 % 21:50: 21:50 injection 1 21 :00 mL lidocaine 2021-11 No [id number] 1mL 1 mL, UT (Xylocaine) 0-11 10-11 Injection, H ealth 1 % 21:50: 21:50 Once PRN injection 1 21 :00 Procedure, mL Starting on Mon08/30/22 at 1650, For 1 dose lidocaine 2021-11 No [id number] 1mL 1 mL, UT (Xylocaine) 0-11 10-11 Injection, H ealth 1 % 21:50: 21:50 Once PRN injection 1 21 :00 Procedure, mL Starting on Mon08/30/22 at 1650, For 1 dose Sodium 2021-11 No [id number] 20mg 20 mg, UT Hyaluronate 0-11 10-11 Intra-jake H ealth solution 21:50: 21:50 cular, prefilled 21 :00 Once PRN syringe 20 Procedure, mg Starting on Mon08/30/22 at 1650, For 1 dose Sodium 2021-11 No [id number] 20mg 20 mg, UT Hyaluronate 0-11 10-11 Intra-jake H ealth solution 21:50: 21:50 cular, prefilled 21 :00 Once PRN syringe 20 Procedure, mg Starting on Mon08/30/22 at 1650, For 1 dose Sodium 2021-11 No [id number] 20mg UT Hyaluronate 0-04 10 Health solution 22:32: 22:32 prefilled 12 :00 syringe 20 mg Sodium 2021-11 No [id number] 20mg UT Hyaluronate 0-04 08-23 Health solution 22:32: 22:32 prefilled 12 :00 syringe 20 mg bupivacaine 2021-11 No [id number] 1mL UT (Marcaine) 0-04 10 Health 0.5 % 22:32: 22:32 injection 1 12 :00 mL bupivacaine 2021-11 No [id number] 1mL UT (Marcaine) 0-04 08-23 Health 0.5 % 22:32: 22:32 injection 1 12 :00 mL bupivacaine 2021-11 No [id number] 1mL 1 mL, UT (Marcaine) 0-04 08-23 Injection, He alth 0.5 % 22:32: 22:32 Once PRN injection 1 12 :00 Procedure, mL Starting on Mon08/23/22 at 1732, For 1 dose bupivacaine 2021-11 No [id number] 1mL 1 mL, UT (Marcaine) 0-04 08-23 Injection, He alth 0.5 % 22:32: 22:32 Once PRN injection 1 12 :00 Procedure, mL Starting on Mon08/23/22 at 1732, For 1 dose Sodium 2021-11 No [id number] 20mg 20 mg, UT Hyaluronate 0-04 08-23 Intra-jake H ealth solution 22:32: 22:32 cular, prefilled 12 :00 Once PRN syringe 20 Procedure, mg Starting on Mon08/23/22 at 1732, For 1 dose Sodium 2021-11 No [id number] 20mg 20 mg, UT Hyaluronate 0-04 10 Intra-jake H ealth solution 22:32: 22:32 cular, prefilled 12 :00 Once PRN syringe 20 Procedure, mg Starting on 08/23/22 at 1732, For 1 dose meloxicam No [id number] 15mg Take 1 UT (Mobic) 15 08-17 tablet (15 He alth MG tablet 00:00: 04:59 mg total) 00 :00 by mouth 1 (one) time each day if needed for mild pain. meloxicam No [id number] 15mg Take 1 UT (Mobic) 15 08-17 tablet (15 He alth MG tablet 00:00: 04:59 mg total) 00 :00 by mouth 1 (one) time each day if needed for mild pain. meloxicam No [id number] 15mg Take 1 UT (Mobic) 15 08-17 tablet (15 He alth MG tablet 00:00: 04:59 mg total) 00 :00 by mouth 1 (one) time each day if needed for mild pain. sodium No 8181 20mg UT hyaluronate 08-16 09 Health (viscosup) 15:00: 15:07 (Hyalgan) 00 :27 injection 20 mg lidocaine 2021- No [id number] 1mL UT (Xylocaine) 03-31 [facility] 1 % 21:04: 21:04 injection 1 22 :00 mL triamcinolo 2021- No [id number] 80mg UT ne 03-31 [facility] acetonide 21:04: 21:04 (Kenalog-40 22 :00 ) injection 80 mg lidocaine 2021- No [id number] 1mL UT (Xylocaine) 03-31 [facility] 1 % 21:04: 21:04 injection 1 22 :00 mL triamcinolo 2021- No [id number] 80mg UT ne 03-31 410 Health acetonide 21:04: 21:04 (Kenalog-40 22 :00 ) injection 80 mg triamcinolo 2021- No [id number] 80mg 80 mg, UT ne 03-31 410 [facility] Health acetonide 21:04: 21:04 cular, (Kenalog-40 22 :00 Once PRN ) injection Procedure, 80 mg Starting on Shandra 03/31/22 at 1604, For 1 dose lidocaine 2021- No [id number] 1mL 1 mL, UT (Xylocaine) 03-31 4102 Injection, H ealth 1 % 21:04: 21:04 Once PRN injection 1 22 :00 Procedure, mL Starting on Shandra 03/31/22 at 1604, For 1 dose triamcinolo 2021- No [id number] 80mg 80 mg, UT ne 03-31 4102 [facility] Health acetonide 21:04: 21:04 cular, (Kenalog-40 22 :00 Once PRN ) injection Procedure, 80 mg Starting on Shandra 03/31/22 at 1604, For 1 dose lidocaine 2021- No [id number] 1mL 1 mL, UT (Xylocaine) 03-31 410 Injection, H ealth 1 % 21:04: 21:04 Once PRN injection 1 22 :00 Procedure, mL Starting on Shandra 03/31/22 at 1604, For 1 dose Procedures Procedure Date / Time Performing Clinician Source Performed POC URINALYSIS DIPSTICK 2023-05-09 21:36:00 Diana Woods [facility] [id number] 2023-05-09 21:35:45 Diana Woods [facility] ARTHROCENTESIS ASPIR&/INJ 2022-08-30 21:50:21 Checo Interiano [facility] JT/BURSA W/O US BILATERAL ARTHROCENTESIS ASPIR&/INJ 2022-08-23 22:32:12 Laisha Checo [facility] JT/BURSA W/O US BILATERAL ARTHROCENTESIS ASPIR&/INJ 2022-03-31 21:04:22 Laisha Checo [facility] JT/BURSA W/O US BILATERAL Infectious agent 2020-10-26 00:00:00 [facility] by nucleic acid (DNA or Infectious agent 2020-10-19 00:00:00 [facility] detection by nucleic acid (DNA or Infectious agent 2020-10-13 00:00:00 [facility] detection by nucleic acid (DNA or Infectious agent 2020-03-04 00:00:00 [facility] detection by nucleic acid Plan of Care Planned Activity Planned Date Details Comments Source Future Scheduled 2023-09-05 Screening for [facility] Test 13:41:31 malignant neoplasm of colon (procedure) [code = 915018644] Future Scheduled 2023-09-05 Screening for [facility] Test 13:41:31 malignant neoplasm of colon (procedure) [code = 515521619] Future Scheduled 2023-09-05 Screening for [facility] Test 13:41:31 malignant neoplasm of colon (procedure) [code = 683019356] Future Scheduled 2023-09-05 [facility] 13:41:31 (#1) [code = COVID-19 VACCINE (#1)] Future Scheduled 2023-09-05 [facility] 13:41:31 screening (procedure) [code = 491621283] Future Scheduled 2023-09-05 Screening for [facility] Test 13:41:31 malignant neoplasm of cervix (procedure) [code = 284659730] Future Scheduled 2023-09-05 BREAST CANCER [facility] Test 13:41:31 SCREENING [code = BREAST CANCER SCREENING] Future Scheduled 2023-09-05 [facility]LES [facility]ACCINES [facility] 13:41:31 (1 of 2) [code = SHINGLES VACCINES (1 of 2)] Future Scheduled 2023-09-05 RSV VACCINES > 60 [facility] 13:41:31 YR (1 - 1-dose 60+ series) [code = RSV VACCINES > 60 YR (1 - 1-dose 60+ series)] Future Scheduled 2023-09-05 INFLUENZA VACCINE [facility] 13:41:31 (#1) [code = INFLUENZA VACCINE (#1)] Future Scheduled 2023-09-05 Screening for [facility] Test 13:41:31 malignant neoplasm of colon (procedure) [code = 007993771] Future Scheduled 2023-09-05 Screening for [facility] Test 13:41:31 malignant neoplasm of colon (procedure) [code = 737965927] Future Scheduled 2023-06-29 Screening for [facility] Test 05:56:13 malignant neoplasm of colon (procedure) [code = 009692375] Future Scheduled 2023-06-29 Screening for [facility] Test 05:56:13 malignant neoplasm of colon (procedure) [code = 442662491] Future Scheduled 2023-06-29 Screening for [facility] Test 05:56:13 malignant neoplasm of colon (procedure) [code = 275845130] Future Scheduled 2023-06-29 [facility] 05:56:13 (#1) [code = COVID-19 VACCINE (#1)] Future Scheduled 2023-06-29 [facility] Test 05:56:13 screening (procedure) [code = 422625897] Future Scheduled 2023-06-29 Screening for [facility] Test 05:56:13 malignant neoplasm of cervix (procedure) [code = 259840097] Future Scheduled 2023-06-29 BREAST CANCER [facility] Test 05:56:13 SCREENING [code = BREAST CANCER SCREENING] Future Scheduled 2023-06-29 SH[facility]LES VACCINES [facility] 05:56:13 (1 of 2) [code = SHINGLES VACCINES (1 of 2)] Future Scheduled 2023-06-29 IN[facility]ENZA [facility]ACCINE [facility] 05:56:13 [code = INFLUENZA VACCINE] Future Scheduled 2023-06-29 Screening for [facility] Test 05:56:13 malignant neoplasm of colon (procedure) [code = 776567377] Future Scheduled 2023-06-29 Screening for [facility] Test 05:56:13 malignant neoplasm of colon (procedure) [code = 200687240] Encounters Start End Encounter Admission Attending Care Care Encounter Source Date/Time Date/Time Type Type Clinicians Facility Department ID 2023-02-03 Outpatient [facility] [id number] [place] 08:44:54 [id number] Health 2023-06-28 2023-06-28 Telephone Allyson Herzog.2.840.1 [id number] [facility] 00:00:00 00:00:00 [place]yn [place] [address] 3.430.2.7 Hospit a .3.596191 l .8 2023-06-28 2023-06-28 Telephone Dorinda Herzog2.840.1 [id number] 2099 [id number] [facility] 00:00:00 00:00:00 [place]yn [place] [address]862.1.[address] 3.430.2.7 Hospit a .3.422542 l .8 2023-06-02 2023-06-02 Telephone Chuck, 1.2.840.1 [id number] 21 [id number] [facility] 11:15:00 12:20:08 Consult Diana 24060.1.[address] [place] 3.430.2.7 Hosp blossom .3.968658 l .8 2023-06-02 2023-06-02 Telephone Chuck, 1.2.840.1 [id number] 21 [id number] [facility] 11:15:00 12:20:08 Consult Diana [address]139.1.[address] [facility]430[facility]7 Hosp blossom .3.967650 l .8 2023-06-02 2023-06-02 Telephone Karig, 1.2.840.1 [id number] [facility] 00:00:00 00:00:[address] 3.430.2.7 Hospit a .3.216778 l .8 2023-06-02 2023-06-02 Telephone Kraig, 1.2.840.1 [id number] [facility] 00:00:00 00:00:[address] 3.430.2.7 Hospit a .3.468855 l .8 2023-05-31 2023-05-31 Telephone Kraig, 1.2.840.1 [id number] [id number] [facility] 00:00:00 00:00:[address] 3.430.2.7 Hospit a .3.545307 l .8 2023-05-31 2023-05-31 Telephone Kraig, 1.2.840.1 [id number] 043 [id number] Method[facility] 00:00:00 00:00:[address] 3.430.2.7 Hospit a .3.098585 l .8 2023-05-09 2023-05-09 Office Chuck, 1.2.840.1 [id number] 2100 [id number] Methodi 15:00:00 16:09:09 Visit Diana 60781.1.[address] [place] 3.430.2.7 Hosp blossom .3.331312 l .8 2023-05-09 2023-05-09 Office Chuck, 1.2.840.1 [id number] 2100 [id number] Method 15:00:00 16:09:09 Visit Daina 87128.1.1 [address] [facility] 3.430.2.7 Hosp blossom .3.969503 l .8 2022-10-05 2022-10-05 Outpatient DONNA [facility] [id number] [place] 16:30:00 17:06:43 CAROLYNE Health 2022-08-30 2022-08-30 Procedure Liasha, [facility]TH[facility] 1.2.840.114 [id number] [place] 16:30:00 16:34:50 Visit Checo SUGAR 350.1.13.58 He alth [place]AND 9.2.7.2.686 [id number] 1 2022-08-23 2022-08-23 Procedure MAICO Interiano ORTHO 1.2.840.114 [id number] [place] 16:30:00 17:09:59 Visit Checo SUGAR 350.1.13.58 He alth LAND 9.2.7.2.686 [id number] 1 2022-08-16 2022-08-16 Office Donna [facility]TH[facility] 1.2.476.344 [id number] [place] 09:15:00 10:07:51 Visit Carolyne SUGAR 350.1.13.58 He alth LAND 9.2.7.2.686 [id number] 1 2022-03-31 2022-03-31 Office Donna [facility] 1.2.678.294 [id number] [place] 14:30:00 15:34:45 Visit Carolyne SUGAR 350.1.13.58 He alth LAND 9.2.7.2.686 [id number] 1 2020-10-29 2020-10-29 Outpatient WILNER [facility] [id number] Access 15:00:00 15:00:00 [facility] 2020-10-29 2020-10-29 Outpatient WILNER [facility] [id number] Access 15:00:00 15:00:00 DEBBIE Mendez [id number] ealt [id number] facsimile [id number] de3 [id number] 2020-10-29 2020-10-29 Outpatient DARBY, [facility] [id number] Access 00:00:00 00:00:00 DEBBIE [facility] 2020-10-26 2020-10-26 Outpatient DARBY, [facility] [id number] Access 16:15:00 16:15:00 DEBBIE [facility] 2020-10-26 2020-10-26 Outpatient DARBY, [facility] [id number] Access 16:15:00 16:15:00 DEBBIE Mendez [id number] ealt [id number] de3 [id number] 2020-10-19 2020-10-19 Outpatient WILNER, [facility] [id number] AccessH 13:15:00 13:15:00 DEBBIE [facility] 2020-10-19 2020-10-19 Outpatient WILNER, [facility] [id number] Access 13:15:00 13:15:00 DEBBIE Mendez [id number] ealt [id number] de3 [id number] 2020-10-13 2020-10-13 Outpatient WILNER, [facility] [id number] AccessH 14:00:00 14:00:00 DEBBIE [facility] 2020-10-13 2020-10-13 Outpatient WILNER, [facility] [id number] AccessH 14:00:00 14:00:00 DEBBIE Mendez [id number] ealt [id number] de3 [id number] 2020-10-13 2020-10-13 Outpatient DARBY, [facility] [id number] Access[facility] 00:00:00 00:00:00 DEBBIE [facility] 2020-10-13 2020-10-13 Outpatient DARBY, [facility] [id number] Access[facility] 00:00:00 00:00:00 DEBBIE Mendez [id number] [facility] [id number] de3 [id number] 2020-03-10 2020-03-10 Outpatient JIMBO, [facility] [id number] Access 11:03:00 11:03:00 JEANNE [facility] 2020-03-10 2020-03-10 Outpatient JIMBO, [facility] [id number] Access 11:03:00 11:03:00 [facility] [id number] [facility] [id number] 2020-03-04 2020-03-04 Outpatient [facility] [id number] Access 16:00:00 16:00:00 [id number] [facility] [id number] 2020-03-04 [facility] [id number] [facility] 00:00:00 00:00:00 DEBBIE [facility] 2020-03-04 2020-03-04 Outpatient [facility] [id number] [place] 00:00:00 00:00:[address] 2020-03-04 2020-03-04 [facility] [id number] [facility] 00:00:00 00:00:00 DEBBIE Andrea [id number] [facility] [id number] de3 [id number] 2020-03-04 2020-03-04 Outpatient [facility] [id number] [place] 00:00:00 00:00:00 [address] 2020-03-04 2020-03-04 Outpatient [facility] [id number] 458 [place] 00:00:00 00:00:00 P[address] 2020-02-13 2020-02-13 Outpatient [facility] [id number] [place] 00:00:00 00:00:00 [address] Results Test Description Test Time Test Comments Results Result Comments Source POC urinalysis dipstick 2023-05-09 21:36:00 Test Item Value Reference Range Interpretation Comme nts Color urine, POC (test code = Yellow 8292416) Clarity urine, POC (test code = Clear 3323574) Glucose urine, POC (test code = Negative Negative 2650415) Bilirubin urine, POC (test code = Negative Negative 9322534) Ketones urine, POC (test code = Trace Negative A 2514-8) Specific gravity urine, POC (test 1.025 1.005-1.030 code = 5811-5) Blood urine, POC (test code = Negative Negative 6335105) pH urine, POC (test code = 5.5 See_Comment [Automated message] The 5803-2) system which ge nerated this result transmit zoya reference range: 5.0, 5.5 , 6.0, 6.5, 7.0, 7.5, 8.0, 8.5. The reference range was not used to interpret th is result as normal/abnormal . Protein urine, POC (test code = Trace Negative A 86594-1) Urobilinogen urine, POC (test <2.0 <=2.0 code = 55529-6) Nitrite urine, POC (test code = Negative Negative 2-4) Leukocyte esterase urine, POC Small Negative A (test code = 7245711) Lab Interpretation (test code = Abnormal 40458-1) [facility] urinalysis [id number] 21:36:00 Test Item Value Reference Range Interpretation Comments Color urine, POC (test Yellow code = 8278335) Clarity urine, POC (test Clear code = 4642112) Glucose urine, POC (test Negative Negative code = 3175596) Bilirubin urine, POC Negative Negative (test code = 8162996) Ketones urine, POC (test Trace Negative A code = 2514-8) Specific gravity urine, 1.025 1.005-1.030 POC (test code = 5811-5) Blood urine, POC (test Negative Negative code = 9627767) pH urine, POC (test code 5.5 See_Comment [A utomated message] = 5803-2) The system Lanyrd generated this result transmitted ref erence range: 5.0, 5.5 , 6.0, 6.5, 7.0, 7.5, 8.0, 8.5. The refere nce range was not u sed to interpret this result as normal/abnor mal. Protein urine, POC (test Trace Negative A code = 43737-9) Urobilinogen urine, POC <2.0 See_Comment [Au tomated message] (test code = 05497-6) The sy stem which generated this result transmitted ref erence range: <=2.0. T he reference range was not used to int erpret this result as normal/abnormal . Nitrite urine, POC (test Negative Negative code = 5802-4) Leukocyte esterase Small Negative A urine, POC (test code = 8167214) Lab Interpretation (test Abnormal code = 62949-8) [facility] BLADDER SCAN/[id number] 21:35:45 Test Item Value Reference Range Interpretation Comments Volume (test code = 5807262) 3ml [facility] BLADDER SCAN/[id number] 21:35:45 Test Item Value Reference Range Interpretation Comments Volume (test code = 5799408) 3ml [facility] Description: SARS-CoV-2 (COVID-19) RNA [Presence] in Unspecified specimen by MAGALIE with probe [id number] 08:42:00 Test Item Value Reference Range Interpretation Comments SARS-CoV-2 Not Detected Not Detected Testing was per formed using the , MAGALIE Aptima SARS-CoV -2 assay.This (test code nucleic acid am plification test = 25124-2) was developed a nd its performancechar acteristics determined by [employer]. N [facility] acidamplificati on tests include PCR and [...] in Unspecified specimen by MAGALIE with probe [id number] 08:42:00 Test Item Value Reference Range Interpretation Comments SARS-CoV-2 Not Detected Not Detected Testing was per formed using the , MAGALIE Aptima SARS-CoV -2 assay.This (test code nucleic acid am plification test = 95394-0) was developed a nd its performancechar acteristics determined by [employer]. N [facility] acidamplificati on tests include PCR and [...] in Unspecified specimen by MAGALIE with probe [id number] 07:45:00 Test Item Value Reference Range Interpretation Comments SARS-CoV-2 Not Detected Not Detected Testing was per formed using the , MAGALIE Aptima SARS-CoV -2 assay.This (test code nucleic acid am plification test = 08364-0) was developed a nd its performancechar acteristics determined by [employer]. N [facility] acidamplificati on tests include PCR and [...] in Unspecified specimen by MAGALIE with probe [id number] 07:45:00 Test Item Value Reference Range Interpretation Comments SARS-CoV-2 Not Detected Not Detected Testing was per formed using the , MAGALIE Aptima SARS-CoV -2 assay.This (test code nucleic acid am plification test = 47896-6) was developed a nd its performancechar acteristics determined by [employer]. N ucleic acidamplificati on tests include PCR [...] in Unspecified specimen by MAGALIE with probe [id number] 07:45:00 Test Item Value Reference Range Interpretation Comments SARS-CoV-2 Not Detected Not Detected Testing was per formed using the , MAGALIE Aptima SARS-CoV -2 assay.This (test code nucleic acid am plification test = 34415-5) was developed a nd its performancechar acteristics determined by [employer]. N ucleic acidamplificati on tests include PCR and TMA. Th is test has not been FDAcleared or approved. This test has b een authorized by FDA under anEme rgency Use Authorization ( EUA). This test is only authori zed forthe duration of manuela e the declaration that circumstan oje existjustifying the authorization o f the emergency [...] in Unspecified specimen by MAGALIE with probe [id number] 07:45:00 Test Item Value Reference Range Interpretation Comments SARS-CoV-2 Not Detected Not Detected Testing was per formed using the , MAGALIE Aptima SARS-CoV -2 assay.This (test code nucleic acid am plification test = 08656-5) was developed a nd its performancechar acteristics determined by [employer]. N [facility] acidamplificati on tests include PCR and [...] in Unspecified specimen by MAGALIE with probe [id number] 05:31:00 Test Item Value Reference Range Interpretation Comments SARS-CoV-2 Not Detected Not Detected Testing was per formed using the , MAGALIE Aptima SARS-CoV -2 assay.This (test code nucleic acid am plification test = 32923-7) was developed a nd its performancechar acteristics determined by [employer]. N [facility] acidamplificati on tests include PCR and [...] in Unspecified specimen by MAGALIE with probe [id number] 05:31:00 Test Item Value Reference Range Interpretation Comments SARS-CoV-2 Not Detected Not Detected Testing was per formed using the , MAGALIE Aptima SARS-CoV -2 assay.This (test code nucleic acid am plification test = 46530-0) was developed a nd its performancechar acteristics determined by [employer]. N ucleic acidamplificati on tests include PCR [...] in Unspecified specimen by MAGALIE with probe [id number] 05:31:00 Test Item Value Reference Range Interpretation Comments SARS-CoV-2 Not Detected Not Detected Testing was per formed using the , MAGALIE Aptima SARS-CoV -2 assay.This (test code nucleic acid am plification test = 03659-1) was developed a nd its performancechar acteristics determined by [employer]. N ucleic acidamplificati on tests include PCR [...] in Unspecified specimen by MAGALIE with probe [id number] 05:31:00 Test Item Value Reference Range Interpretation Comments SARS-CoV-2 Not Detected Not Detected Testing was per formed using the , MAGALIE Aptima SARS-CoV -2 assay.This (test code nucleic acid am plification test = 00320-5) was developed a nd its performancechar acteristics determined by [employer]. N [facility] acid[facility]ificati on tests include PCR and TMA. is test has not been FDAcleared or approved. This test has b een authorized by FDA under anEme rgency Use Authorization ( EUA). This test is only authori zed e duration of manuela e the declaration that [...] assay.
<br/ >Performed by:
Miracle Kellogg ()

[facility] Description: SARS-CoV-2, [id number] 17:05:00 Test Item Value Reference Range Interpretation Comments SARS-CoV-2, Not Detected Not Detected This test was d eveloped and MAGALIE (test code its performan ce = 10569-4) characteristics determinedby [employer] T his test has not been FDA [...] terminated orrevoked sooner.

Performed by:
Miracle Grimm ([facility])

[facility] Description: SARS-CoV-2, [id number] 17:05:00 Test Item Value Reference Range Interpretation Comments SARS-CoV-2, Not Detected Not Detected This test was d eveloped and MAGALIE (test code its performan ce = 75953-4) characteristics determinedby [employer] T his test has not been FDA [...] i s terminated orrevoked sooner.

Performed by:
[facility] ([facility])

[facility] Description: SARS-CoV-2, [id number] 17:05:00 Test Item Value Reference Range Interpretation Comments SARS-CoV-2, Not Detected Not Detected This test was d eveloped and MAGALIE (test code its performan ce = 25719-3) characteristics determinedby [facility]. T his test has not been FDA cl eared orapproved. Thi s test has been authorized by FDA under an Emerge vty UseAuthorizatio n (EUA). This test has b een validated in ac cordance withthe FDA's G uidance Document (Polic y for Diagnostics Jennyfer ting inLaboratories Certified to Perform High Co mplexity Testing under C LIAprior to Emergency Use A uthorization for Coronavirus Disease-2019dur ing the Public Health E [facility]) issued on 2019.FDA indepe ndent review of [...] s terminated orrevoked sooner.

Performed by:
[facility] ([facility])

[facility] Description: SARS-CoV-2, [id number] 17:05:00 Test Item Value Reference Range Interpretation Comments SARS-CoV-2, Not Detected Not Detected This test was d eveloped and MAGALIE (test code its performan ce = 47073-9) characteristics determinedby [employer] T his test has not been FDA [...] Coronavirus Disease-2019dur ing the Public Health E [facility]) issued on 2019.FDA indepe ndent review of [...] i s terminated orrevoked sooner.

Performed by:
[facility] ([facility])

[facility] Description: SARS-CoV-2, [id number] 17:05:00 Test Item Value Reference Range Interpretation Comments SARS-CoV-2, Not Detected Not Detected This test was d eveloped and MAGALIE (test code its performan ce = 39188-5) characteristics determinedby [employer] T his test has not been FDA [...] i s terminated orrevoked sooner.

Performed by:
[facility] ([facility])

[facility] Description: SARS-CoV-2, [id number] 17:05:00 Test Item Value Reference Range Interpretation Comments SARS-CoV-2, Not Detected Not Detected This test was d eveloped and MAGALIE (test code its performan ce = 14733-0) characteristics determinedby [employer] T his test has not been FDA [...] Emergency Use A uthorization for Coronavirus Disease-2019dur [facility] the Public Health E mergency) issued on 2019.FDA indepe ndent review of this validat ion is pending. This t est isonly authorized for the duration of time the oct laration thatcircumstanc es exist justifying the authorization o f the emergency useof in vitro diagnostic test s for detection of SA RS-CoV-2 virus and/ordia gnosis of COVID-19 infect ion under section 564(b)( 1) of the Act, 21U.S.C. 360bbb-3(b)(1), unless the authorization i s terminated orrevoked sooner.

Performed by:
Miracle Grimm ([facility])

[facility]
[2023-09-05 15:44] VITALS: BMI 41.9
--- NOTE | 2023-09-05 16:26 | OP ---
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 Procedure: Left knee manipulation under general anesthesia with paralysis. Estimated Blood Loss: 0 cc. Complications: There were no complications. Indications For Operation: Ms. Cook is a patient who approximately 2 months ago underwent a total knee arthroplasty by me. She had a block and this caused difficulty with her ability to extend her knee and physical therapy was somewhat delayed or it was somewhat complicated because of this issue. I saw her in the office 2 weeks after the surgery and she had flexion to over 90 degrees. She did h ave weakness with extension, but was able to maintain a straight leg raise with slight assistance. S he was told that she should work extremely hard with Physical Therapy. They anticipated that the roseanne driceps function would return. Following this, she does return and she now has good quadriceps funct ion, has full knee extension, however, knee flexion is limited to 70 degrees. Unsure exactly how thi s occurred, definitely not a mechanical block and may be related to problems with physical therapy. She was given additional week to try to see if she can increase this with the diligent and hardworkin g physical therapy on her own. However, the amount of time that I saw her back it was not that encou raged that she would be able to do this and I discussed with her at that time, the possibility of man ipulation under anesthesia, possible arthroscopy, possible open lysis of adhesions or quadricepsplast y. These being all techniques that I have used in the past for arthrofibrosis of the total knee. Ho wever, she is told if we can achieve good flexion at each step that we would cease this and hopefully would only proceed with a manipulation under anesthesia. She says she understands things as present ed and wishes to proceed. Description Of Procedure: Patient was taken to the recovery room and placed in supine position. Gen eral anesthesia was easily obtained by the Anesthesia staff. Following this, paralysis was then esta blished by Anesthesia and the hip was flexed. The knee has an attitude of flexion of approximately 7 0 degrees. After this, the knee was stabilized with a hand and gentle though somewhat forceful flexi on of the knee was undertaken. Lysis of adhesion is heard and felt as the knee goes into more and mo re flexion. We were able to achieve flexion to approximately 115 degrees. It is quite firm at this point, and decision was made not to push harder. However, a decision was made whether or not to proc eed with arthroscopy or open lysis of adhesions. We have achieved 115 degrees and this was compared to her contralateral knee and because of her habitus, there were only a few more degrees of flexion o f the right knee when compared to the left. Decision was made not to proceed with any open or arthro scopic procedure. The patient was then awakened and taken to recovery room. There were no complicat ions. /TING Voice ID: [id number] Report ID: [id number]
[2023-09-05] MEDS ORDERED: INFLUENZA VACCINE (for 6+ mo) 0.5 ML DOSE IMVAC ONE (17:00)
[2023-09-06 09:26] VITALS: O2SAT 100
[2023-09-06 12:09] VITALS: BP 110/64; TEMP 97.8
== END 2023-09-06 12:45 | disposition home or self-care (01) ==
LOC: OR 06:50 → 2ND 13:35
PROVIDERS: ADMIT Orthopaedic Surgery; ATTEND Orthopaedic Surgery
PROC: 0SSDXZZ Reposition Left Knee Joint, External Approach (ICD-10-PCS; principal; 2023-09-05 09:15)
DX: M25.662 Stiffness of left knee, not elsewhere classified (principal); T84.89XA Other specified complication of internal orthopedic prosthetic devices, implants and grafts, initial encounter; Z96.659 Presence of unspecified artificial knee joint
CPT/HCPCS: 36415; 80048; 85025; 94010; 97110; 97116; 97139; 97161; 97530; G0378; G0379; J0690; J1100; J2001; J2250; J2405; J2704; J3010; J7120